=== PATIENT | female | born 1980 | race Caucasian/White ===

== ENCOUNTER 2023-03-01 10:53 | Outpatient (CLI) | payer OTHER | END 2023-03-01 10:55 | disposition home or self-care (01) | LOC: SONOGRAMA 10:53 | PROVIDERS: ATTEND Pathology Anatomic Pathology & Clinical Pathology | DX: D36.0 Benign neoplasm of lymph nodes (principal) ==

== ENCOUNTER 2023-07-25 10:26 | Emergency (ER) | payer OTHER ==
[~2023-07-25] VITALS: Ht 175.3 cm; Wt 85.7 kg
[2023-07-25] MEDS ORDERED: GLYXAMBI 10 MG1 EACH PO (12:34)
[2023-07-25] MEDS ORDERED: SYNTHROID137 MCG PO (12:34)
[2023-07-25] MEDS ORDERED: CARDIZEM LA180 MG PO (12:35)
[2023-07-25] MEDS ORDERED: IRBESARTAN-HCT1 EACH PO (12:35)
[2023-07-25 15:04] LABS: HEMATOCRIT 43.9 % (36.0-45.00); HEMOGLOBIN 14.7 g/dL (12.0-15.00); MEAN CELL VOLUME 86.1 fL (80.00-100.00); MEAN CORPUSCULAR HEMOGLOBIN 28.7 pg (27.00-32.0); MEAN CORPUSCULAR HGB CONC 33.3 g/dl (32.0-36.0); PLATELET COUNT 318 K/uL (150-450); RED CELL DISTRIBUTION WIDTH 13.5 % (11.5-14.5)
== END 2023-07-25 16:55 | disposition home or self-care (01) ==
LOC: ER 10:26
DX: J06.9 Acute upper respiratory infection, unspecified (principal); E11.9 Type 2 diabetes mellitus without complications; I10 Essential (primary) hypertension; Z20.822 Contact with and (suspected) exposure to COVID-19; Z88.8 Allergy status to other drugs, medicaments and biological substances

== ENCOUNTER 2024-04-10 10:45 | Outpatient (CLI) | payer OTHER ==
[~2024-04-10 10:45] MED LIST: CARDIZEM LA180 MG PO; GLYXAMBI 10 MG1 EACH PO; IRBESARTAN-HCT1 EACH PO; SYNTHROID137 MCG PO
== END 2024-04-10 10:52 | disposition home or self-care (01) ==
LOC: SONOGRAMA 10:45
PROVIDERS: ATTEND Pathology Anatomic Pathology & Clinical Pathology
DX: R59.0 Localized enlarged lymph nodes (principal)

== ENCOUNTER 2024-05-13 08:01 | Emergency (ER) | payer OTHER ==
[~2024-05-13] VITALS: Ht 175.3 cm; Wt 93.0 kg
[2024-05-13] MEDS ORDERED: KETOROLAC TROMETHAMINE 60 MG VIAL IM ONE (09:00)
[2024-05-13 09:41] LABS: HEMATOCRIT 44.9 % (36.0-45.00); HEMOGLOBIN 15.3 g/dL (12.0-15.00); MEAN CELL VOLUME 90.3 fL (80.00-100.00); MEAN CORPUSCULAR HEMOGLOBIN 30.7 pg (27.00-32.0); PLATELET COUNT 336 K/uL (150-450); RED BLOOD COUNT 4.97 M/uL (4.00-6.00); RED CELL DISTRIBUTION WIDTH 13.7 % (11.5-14.5)
[2024-05-13 09:43] LABS: PH,URINE 5.5 (5.0-8.0); URINE APPEARANCE Cloudy; URINE BILIRRUBIN Negative (NEGATIVE); URINE BLOOD Negative; URINE COLOR Yellow; URINE GLUCOSE Negative (NEGATIVE); URINE KETONE Negative (NEGATIVE); URINE LEUKOCYTE Negative; URINE NITRATE Negative; URINE PROTEIN Negative (NEGATIVE)
[2024-05-13 09:44] LABS: URINE BACTERIA 4026.8 uL (0.0-1933); URINE EPITHELIAL CELLS 131.8 uL (0.0-38.8); URINE RBC 9.3 uL (0.0-20.8); URINE WBC 16.5 uL (0.0-23.2)
[2024-05-13 10:31] LABS: ALKALINE PHOSPHATASE 72 U/L (50-136); ALT/SGPT 20 U/L (12-78); ANION GAP 11 (10.0-20.0); AST/SGOT 20 U/L (15-37); BILIRUBIN TOTAL 1.56 mg/dL (0.3-1.2); BLOOD UREA NITROGEN 10 mg/dL (7-18); BUN CREA RATIO 13 (7.0-25.0); CALCIUM 8.8 mg/dL (8.5-10.1); CARBON DIOXIDE 29 mEq/L (21-32); CHLORIDE 103 mmol/L (98-107); CREATININE SERUM 0.76 mg/dL (0.55-1.02); GFR 82.67; GLOBULINA 3.7 G/DL (2.4-3.5); GLUCOSE FASTING 91 mg/dL (65-100); OSMOLALITY SERUM 276 MOSM/KG (275-295); POTASSIUM 4.13 mEq/L (3.5-5.1); SODIUM 139 mmol/L (136-145); TOTAL PROTEIN 7.7 gm/dL (6.4-8.2)
[2024-05-13 10:36] LABS: HCG QUANTITATIVE < 1 mUI/mL (1-3)
[2024-05-13] MEDS ORDERED: TAMSULOSIN HCL 0.4 MG CAP PO ONE (11:30)
[2024-05-13] MEDS ORDERED: BACTRIM DS TAB1 EACH PO (14:00)
[2024-05-13] MEDS ORDERED: CEFTRIAXONE SODIUM 1,000 MG VIAL IM ONE (14:00)
[2024-05-13] MEDS ORDERED: PEPCID AC20 MG PO (14:00)
== END 2024-05-13 14:09 | disposition home or self-care (01) ==
LOC: ER 08:03
PROVIDERS: General Practice
DX: R10.32 Left lower quadrant pain (principal); N83.201 Unspecified ovarian cyst, right side; E11.9 Type 2 diabetes mellitus without complications; Z79.84 Long term (current) use of oral hypoglycemic drugs; E03.9 Hypothyroidism, unspecified; Z85.850 Personal history of malignant neoplasm of thyroid; Z88.8 Allergy status to other drugs, medicaments and biological substances